=== PATIENT | male | born 1975 | race Caucasian/White ===

== ENCOUNTER 2019-07-07 10:48 | Inpatient (IN) ==
[2019-07-07] MEDS ORDERED: CeFAZolin Syr 2,000MG/20 ML 2,000 MG/20 ML SYRINGE IVPB ONE (10:59)
--- NOTE | 2019-07-07 11:14 | Anesthesia Evaluation PreOp ---
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 HX Other Medical History: GERD, Other (seasonal allergies) Anesthesia History: No Prior Anesthetic Complications, Past Anesthesia (Testicular torsion 10 y/o) Alcohol Use: none Drug use: none Medications and Allergies Multivitamin [Daily Multiple Vitamin] 1 each PO DAILY 03/15/19 [History] Esomeprazole Magnesium [Nexium 24Hr] 20 mg PO DAILY PRN 07/07/19 [History] Allergy/AdvReac Type Severity Reaction Status Date / Time No Known Allergies Allergy Verified 07/07/19 11:13 - Meds/Allergy Pre-op Review Medications Reviewed: Yes Allergies Reviewed: Yes Beta Blockers on Current Med List: No Anesthesia Results - Labs Laboratory Tests 07/02/19 07/02/19 08:16 08:16 WBC 6.3 Hgb 12.8 L Hct 44.0 Plt Count 328 Sodium 139 Potassium 4.2 Chloride 106 Carbon Dioxide 25 BUN 16 Creatinine 0.99 Anesthesia Exam O2 Sat Height 1.73 m Height 1.73 m Weight 89.811 kg Weight 89.811 kg O2 Sat by Pulse Oximetry 98 Vital Signs Temp Pulse Resp BP Pulse Ox 98.4 F 86 18 134/89 98 07/07/19 11:06 07/07/19 11:06 07/07/19 11:06 07/07/19 11:06 07/07/19 11:06 NPO (# of Hours): > 8 hrs Pain Scale: 0 Pain Scale Used: Numeric (1 - 10) - HEENT Pupil (Motor): Pupils equal, EOMI Mallampati: II Teeth: Normal Oral Opening: Greater than 3 - ELECTRICIAN CONSTRUCTOR SUPERVISOR LOC: Oriented ELECTRICIAN CONSTRUCTOR SUPERVISOR Motor: Normal RUE, Normal LUE, Normal RLE, Normal LLE, Normal Face ELECTRICIAN CONSTRUCTOR SUPERVISOR Sensory: Normal: RUE, LUE, RLE, LLE, Face - Cardiac Rhythm: Regular Murmur: None JVD: No Carotid Bruit: No - Pulmonary Breath Sounds: bilateral Clear Respiratory Effort: Symmetrical Anesthesia Assess/Plan ASA Score: 2 Level of consciousness: Cooperative Anesthetic Plan: General Autologous Blood: Yes Monitoring Plan: Standard Monitors, A-Line Recovery Plan: PACU
[2019-07-07] MEDS ORDERED: *HR* OxyCODONE Immed Rel 5 MG TABLET PO PRN (11:26)
[2019-07-07] MEDS ORDERED: *HR* Promethazine 25 MG/ML VIAL IVP PRN (11:26)
[2019-07-07] MEDS ORDERED: Ondansetron 4 MG/2 ML VIAL IVP ONE (11:26)
[2019-07-07] MEDS: Ringers Solution, Lactated 1,000 ML IVC SCH ×2 (11:27→18:04)
--- NOTE | 2019-07-07 11:49 | History & Physical Report ---
Date of Encounter: 07/07/19 Time of Encounter: 11:48 24 Hour HP Update - Instructions Instructions: If the History and Physical is less than 30 days old and was completed prior to A.M. admission and or procedure and has NOT been updated on calendar day of procedure please complete this update prior to performing procedure. - Update Patient reports changes in Medical Condition: No Changes in examination, assessment, or condition: No Changes in Medication: No Preop tests/diagnostics Reviewed: Yes Surgery Remains Indicated: Yes Consent for Planned Operative Procedure(s) Verified: Yes - Pre-Operative Checklist Preoperative Checklist Indicated: Yes Is VTE Prophylaxis Indicated?: Yes
[2019-07-07] MEDS ORDERED: *HR* FentaNYL (PF) 100 MCG/2 ML VIAL ONE ×3 (12:27→15:48)
[2019-07-07] MEDS ORDERED: *HR* Midazolam HCl 2 MG/2 ML VIAL ONE (12:28)
[2019-07-07] MEDS ORDERED: *HR* Propofol 200 MG/20 ML VIAL IVP ONE (12:28)
[2019-07-07] MEDS ORDERED: Dexamethasone 4 MG/ML VIAL ONE (12:30)
[2019-07-07] MEDS ORDERED: Lidocaine -MPF 2% 2 ML VIAL ONE ×2 (12:30→12:54)
[2019-07-07] MEDS ORDERED: Heparin 1,000 UNITS/500 mL 500 ML ONE (12:37)
[2019-07-07] MEDS ORDERED: *HR* PHENYLEPHRINE 1,000 MCG/10 ML SYRINGE IVP ONE (14:14)
[2019-07-07] MEDS ORDERED: *HR* Rocuronium Bromide 50 MG/5 ML VIAL ONE ×2 (14:32→16:30)
[2019-07-07] MEDS ORDERED: *HR* HYDROMORPHONE 2 MG/ML VIAL ONE (16:42)
--- NOTE | 2019-07-07 17:29 | Operative Note ---
Date of procedure: 07/07/19 Pre-op diagnosis: Right renal mass Post-op diagnosis: same Procedure: Right hand-assisted laparoscopic radical nephrectomy Implants: 16-Setswana Fine catheter Complications: None Anesthesia: GETA Surgeon: Chip Adrian Was there an hardware sales assistant present: Yes Principal Security Architect: Lorraine Duran Estimated blood loss (cc): 500 Specimen: right kidney Condition: stable Disposition: PACU Procedure in Detail: Indications: Mr. Escoto is a 43-year-old gentleman has a history of a right 13.7 x 11.6 x 13.9 cm renal mass. Given its size and location he elected to undergo a hand- assisted laparoscopic right nephrectomy. He was informed of the risks of the surgery which include but are not limited to bleeding, infection, injury to structures, need for further procedures, recurrence, DVT, PE, ileus, bowel injury, splenic injury, and the risk of anesthesia. He is willing to proceed. Procedure: After informed consent was obtained the patient was brought back to the operating room and placed in the supine position. A timeout was performed. Gen. anesthesia was administered and an endotracheal tube was placed. A Fine catheter was placed, and clear urine returned. He was then placed in the flank position with the right side up. He was well secured to the operating room table. All pressure points were well-padded. A 7 cm right lower quadrant incision was then made. The subcutaneous tissue was then dissected down using cautery. The anterior fascia was scored with the cautery. Using a forceps the fascia was then opened. The peritoneum was then identified below. This was grasped with forceps and opened sharply with Metzenbaum scissors. Entry into the peritoneum was safe. The peritoneum was fully opened the length of the incision. The hand port was then placed. Insufflation was achieved. A separate 1 cm incision was then made superior to the umbilicus. Another 1 cm incision was made just under the xiphoid process. 12 mm trochars were then placed. These were placed under direct visual guidance. A 5 mm incision was placed just above the upper 10 mm port. A 5 mm port was placed here to aid as a liver retractor needed. The white line of Toldt was then taken down using the Harmonic. The bowel was reflected off the liver. The Gerota's fascia was identified and the bowel was further dissected medially. The duodenum was identified. This was densely adherent to the kidney. Using Kitner dissectors and the Harmonic scalpel was able to safely kocherize the duodenum. The inferior vena cava was then identified. Dissection proceeded in the inferior aspect of the kidney to the renal vein. There were dense adhesions around the renal vein and it was identified. Posterior to this the renal artery was difficult to dissect out. There were some parasitic vessels that were bleeding at this point and I felt it best to improve my mobility on the kidney. Dissection proceeded along the inferior aspect of the vena cava. The gonadal vein was identified and reflected away from the kidney. The lower pole of the kidney was pressed upwards and identified the ureter. The ureter was cut using the Harmonic scalpel. The lateral aspects of the kidney was then released with dissection. Finally, attention was turned to the superior aspect of the kidney and this was freed up as well. Some of the parasitic veins did bleed at this point but with packing this was adequately controlled. I then returned back to the hilum. I was better able to identify the renal artery. A window behind the vein was created. With my fingers I was able to palpate the artery and I was able to completely get around the hilum. The 45 mm stapler was then introduced. The renal artery was stapled. I then proceeded to staple the renal vein. Hemostasis was adequate. All remaining attachments were released with a Harmonic scalpel. The kidney was then placed in a 15 mm Endo Catch bag. The kidney was removed through the GelPort incision. I then surveyed the nephrectomy bed. Hemostasis was excellent. I did not identify any bleeding. Using the Endoclose the 2 port sites were closed using 0 Vicryl suture. The hand port was then closed. I ran the peritoneum closed using an 0 Vicryl suture. The internal oblique fascia was closed in an running fashion using 0 Vicryl suture. The wounds were irrigated. The anterior dominant wall fascia was closed in a running fashion using an 0 Vicryl suture. Local anesthetic was infiltrated in the wounds. The skin was all closed in a subarticular fashion using a 4-0 Monocryl. Dermabond was applied to the wounds. The patient was then awakened from general anesthesia and brought to the recovery room in good condition. All sponge, needle, and his counts were correct.
[2019-07-07] MEDS: *HR* HYDROmorphone (PF) 1 MG/ML SYRINGE IVP PRN ×3 (18:09→18:37)
[2019-07-07] MEDS ORDERED: Naloxone 0.4 MG/ML INJ IVP PRN (19:33)
[2019-07-07] MEDS ORDERED: Acetaminophen 325 MG TABLET PO PRN (19:33)
[2019-07-07] MEDS: *HR* Heparin 5,000 UNIT/ML VIAL SQ SCH (22:12)
[2019-07-07] MEDS: 0.9 % Sodium Chloride 1,000 ML IVC SCH (22:12)
[2019-07-07] MEDS: *HR* HYDROcodone/Acet 5/325 mg TABLET PO PRN (22:23)
[2019-07-08] MEDS: Ondansetron 4 MG/2 ML VIAL IVP PRN ×2 (00:04→06:05)
[2019-07-08 05:47] LABS: Immature Granulocytes % 0.3 % (0-4); Lymphocytes # 0.7 K/mcL (0.6-4.6); Lymphocytes % 7.8 %; Mean Corpuscular HGB Conc 29.5 g/dL (31.6-35.5); Mean Corpuscular Hemoglobin 22.5 pg (28.0-33.3); Mean Corpuscular Volume 76.3 fL (83.0-100.0); Monocytes # 0.7 K/mcL (0.0-1.3); Monocytes % 7.5 %; Neutrophils # 7.9 K/mcL (1.6-8.9); Platelet Count 287 K/mcL (140-400); Red Blood Count 4.85 M/mcL (4.19-5.50); Segmented Neutrophils % 84.4 %; White Blood Count 9.3 K/mcL (4.3-11.1)
[2019-07-08 05:51] LABS: Hemoglobin 10.9 g/dL (12.9-16.9)
[2019-07-08] MEDS: *HR* Heparin 5,000 UNIT/ML VIAL SQ SCH ×2 (06:05→18:18)
[2019-07-08] MEDS: 0.9 % Sodium Chloride 1,000 ML IVC SCH ×3 (06:05→22:21)
[2019-07-08 06:14] LABS: BUN/Creatinine Ratio 10 (6-26); Blood Urea Nitrogen 15 mg/dL (6-20); Calcium 8.7 mg/dL (8.6-10.3); Carbon Dioxide 24 mEq/L (23-29); Chloride 103 mEq/L (98-107); Glucose 114 mg/dL (70-105); Osmolality,Calculated 286 (280-300); Potassium 4.5 mEq/L (3.5-5.1); Sodium 137 mEq/L (136-145); eGFR For African Americans > 60 (> 60); eGFR For Non-African Americans 52 (> 60)
[2019-07-08] MEDS: *HR* HYDROcodone/Acet 5/325 mg TABLET PO PRN ×4 (07:43→22:21)
--- NOTE | 2019-07-08 08:57 | Urology Progress Note ---
Date of Encounter: 07/08/19 Time of Encounter: 08:30 - Assessment and Plan (1) Right renal mass Current Visit: Yes Status: Acute Assessment and plan: Patient is a 43-year-old male who presents one day status post right hand-nataliia johanna laparoscopic radical nephrectomy for a large right renal mass. Patient appears to be recovering well postoperatively. Vital signs are currently stable and afebrile. I communicated order for discontinuation of Fine catheter with patient's nurse. I have also encouraged ambulation. We will plan to continue with clear liquids today, but if patient experiences increase in appetite, he may introduce solids this evening. Progress Note Subjective: no new complaints Narrative: POD #1. Patient seen and examined lying in bed in no apparent distress. Patient is tolerating clear liquids without nausea or vomiting. Patient reports pain is well-controlled at present. Fine catheter is indwelling and draining sufficiently. Patient denies any fever, chills, chest pain or dyspnea. Objective Initial Vital Signs Temp Pulse Resp BP Pulse Ox 98.4 F 86 18 134/89 98 07/07/19 11:06 07/07/19 11:06 07/07/19 11:06 07/07/19 11:06 07/07/19 11:06 - General physical appearance Present: no distress, no pain - Respiratory Present: normal expansion, normal respiratory effort - Abdomen Present: soft, non tender, wound (Primary incisions clean, dry, intact). Absent: distended - Genitourinary Present: normal penis with no external lesions Urine Appearance: Present: Clear - Integumentary Present: no rash, no abnormal pigmentation - Musculoskeletal Present: normal posture - Psychiatric Present: oriented to time, oriented to person, oriented to place, speech is normal, memory intact - Labs 07/08/19 04:36 07/08/19 04:36 Diabetes panel 07/08/19 Range/Units 04:36 Sodium 137 (136-145) mEq/L Potassium 4.5 (3.5-5.1) mEq/L Chloride 103 (98-107) mEq/L Carbon Dioxide 24 (23-29) mEq/L BUN 15 (6-20) mg/dL Creatinine 1.47 H (0.70-1.30) mg/dL Glucose 114 H (70-105) mg/dL Calcium 8.7 (8.6-10.3) mg/dL Calcium panel 07/08/19 Range/Units 04:36 Calcium 8.7 (8.6-10.3) mg/dL Pituitary panel 07/08/19 Range/Units 04:36 Sodium 137 (136-145) mEq/L Potassium 4.5 (3.5-5.1) mEq/L Chloride 103 (98-107) mEq/L Carbon Dioxide 24 (23-29) mEq/L BUN 15 (6-20) mg/dL Creatinine 1.47 H (0.70-1.30) mg/dL Glucose 114 H (70-105) mg/dL Calcium 8.7 (8.6-10.3) mg/dL Adrenal panel 07/08/19 Range/Units 04:36 Sodium 137 (136-145) mEq/L Potassium 4.5 (3.5-5.1) mEq/L Chloride 103 (98-107) mEq/L Carbon Dioxide 24 (23-29) mEq/L BUN 15 (6-20) mg/dL Creatinine 1.47 H (0.70-1.30) mg/dL Glucose 114 H (70-105) mg/dL Calcium 8.7 (8.6-10.3) mg/dL Consult Discharge Plan - Plan Referrals: Paulo Silvestre DO [Primary Care Provider] -
--- NOTE | 2019-07-08 15:34 | Event Note ---
Date of Encounter: 07/08/19 Time of Encounter: 15:10 Patient seen and examined lying in bed in no apparent distress. Vital signs are stable and afebrile. Patient reports pain is well-controlled, and he is planning to ambulate in the hallway. Patient wishes to continue clear liquid diet until tomorrow morning.
[2019-07-09] MEDS: *HR* HYDROcodone/Acet 5/325 mg TABLET PO PRN ×4 (05:11→22:30)
[2019-07-09] MEDS: *HR* Heparin 5,000 UNIT/ML VIAL SQ SCH ×2 (05:12→17:57)
--- NOTE | 2019-07-09 12:11 | Urology Progress Note ---
Date of Encounter: 07/09/19 Time of Encounter: 12:09 - Assessment and Plan (1) Right renal mass Current Visit: Yes Status: Acute Assessment and plan: Doing well status post right nephrectomy on the 10/06/2019. Incisions clean dry and intact without sign of infection. Patient pain is well-controlled. He reports that his nausea is settling significantly. He was able to tolerate some Jell-O this morning. He reports the onset of flatus. Plan: Continue admission with IV hydration as patient is unable to tolerate adequate by mouth at this point in time. Continue to advance diet as tolerated. Progress Note Subjective: no new complaints, feels better Objective Initial Vital Signs Temp Pulse Resp BP Pulse Ox 98.4 F 86 18 134/89 98 07/07/19 11:06 07/07/19 11:06 07/07/19 11:06 07/07/19 11:06 07/07/19 11:06 - General physical appearance Present: no distress - Respiratory Present: normal respiratory effort - Integumentary Present: other (Incisions clean dry and intact. No evidence of infection) - Musculoskeletal Present: normal posture - Psychiatric Present: oriented to time, oriented to person, oriented to place - Labs 07/08/19 04:36 07/08/19 04:36 Consult Discharge Plan - Plan Referrals: Paulo Silvestre DO [Primary Care Provider] -
[2019-07-09] MEDS: 0.9 % Sodium Chloride 1,000 ML IVC SCH ×2 (14:26→22:30)
[2019-07-09] MEDS ORDERED: *HR* Heparin 5,000 UNIT/ML VIAL ONE (17:54)
[2019-07-10] MEDS: *HR* HYDROcodone/Acet 5/325 mg TABLET PO PRN ×3 (02:33→16:57)
[2019-07-10] MEDS: *HR* Heparin 5,000 UNIT/ML VIAL SQ SCH ×2 (06:17→16:57)
[2019-07-10] MEDS: 0.9 % Sodium Chloride 1,000 ML IVC SCH (06:17)
--- NOTE | 2019-07-10 10:04 | Urology Progress Note ---
Date of Encounter: 07/10/19 Time of Encounter: 10:02 - Assessment and Plan (1) Right renal mass Current Visit: Yes Status: Acute Assessment and plan: Postoperative day #3 status post right hand-assisted laparoscopic nephrectomy. 1. Continue ambulation. 2. Continue general diet. 3. Once pain control is adequate, he can be discharged home. 4. Okay to shower. Progress Note Narrative: Postoperative day #3 status post right hand-assisted laparoscopic nephrectomy. He is tolerating diet. He is voiding well. He did ambulate more yesterday. This caused some worsening of his pain. The narcotics are helping with that. Objective Initial Vital Signs Temp Pulse Resp BP Pulse Ox 98.4 F 86 18 134/89 98 07/07/19 11:06 07/07/19 11:06 07/07/19 11:06 07/07/19 11:06 07/07/19 11:06 - General physical appearance Present: well developed, well nourished, no distress - Respiratory Present: normal respiratory effort - Abdomen Present: soft (Appropriately tender, not distended, incisions are clean, dry, intact) - Integumentary Present: no rash - Musculoskeletal Present: normal posture - Labs 07/08/19 04:36 07/08/19 04:36 Consult Discharge Plan - Plan Referrals: Paulo Silvestre DO [Primary Care Provider] -
--- NOTE | 2019-07-10 10:10 | Discharge Summary ---
Orders not resulted at time of discharge: Pending orders 07/07/19 16:49 Surgical Pathology [PTH] Routine Date of Encounter: 07/11/19 Time of Encounter: 10:07 - Discharge Diagnosis (1) Right renal mass Priority: Primary Status: Acute - Hospital Course Hospital course: Mr. Escoto is a 43 year old male who presented with a right renal mass. On 07/07/2019 he underwent a right hand-assisted laparoscopic nephrectomy. He did well after surgery. His diet was slowly advanced. Once his pain was adequately controlled, he was discharged home in good condition. - Time Spent with Patient Total time spent providing and/or coordinating discharge services: Less than 30 minutes - Discharge Medications Prescriptions: New HYDROcodone/Acet 10/325 mg [[place] 10-325 mg] 1 tab PO Q6HR PRN 4 Days #15 tab PRN Reason: Pain OxyCODONE Immed Rel [Roxicodone 5 MG] 5 mg PO Q6HR PRN 4 Days #15 tablet PRN Reason: Breakthrough Pain Continued Esomeprazole Magnesium [Nexium 24Hr] 20 mg PO DAILY PRN PRN Reason: Heartburn Multivitamin [Daily Multiple Vitamin] 1 each PO DAILY Home Medications: Multivitamin [Daily Multiple Vitamin] 1 each PO DAILY 03/15/19 [History] Esomeprazole Magnesium [Nexium 24Hr] 20 mg PO DAILY PRN 07/07/19 [History] HYDROcodone/Acet 10/325 mg [[place] 10-325 mg] 1 tab PO Q6HR PRN 4 Days #15 tab 07/10/19 [Rx] OxyCODONE Immed Rel [Roxicodone 5 MG] 5 mg PO Q6HR PRN 4 Days #15 tablet 07/10/19 [Rx] Allergies/Adverse Reactions: Allergy/AdvReac Type Severity Reaction Status Date / Time No Known Allergies Allergy Verified 07/07/19 11:13 Date of admission: 07/07/19 19:28 Primary care physician: Paulo Silvestre DO Discharging clinician: Chip Adrian Anticipated date of discharge: 07/10/19 Exam Initial Vital Signs Temp Pulse Resp BP Pulse Ox 98.4 F 86 18 134/89 98 07/07/19 11:06 07/07/19 11:06 07/07/19 11:06 07/07/19 11:06 07/07/19 11:06 - General physical appearance Present: well developed, well nourished, no distress - Eyes Absent: icteric - ENT Present: normal nares - Neck Present: trachea midline - Respiratory Present: normal respiratory effort - Cardiovascular Cardiovascular exam IM: RRR - Abdomen Abdomen: Present: soft (Normal tenderness. Incisions are clean, dry, and intac t.) - Neurologic Present: normal coordination - Musculoskeletal Present: normal gait - Patient Status Disposition: Home, Self-Care Condition: Good Functional capacity at discharge: independent ambulation Overall status at discharge: patient is progressing back to baseline - Discharge Instructions Follow Up With: Chip Adrian MD [Partnered Physician] - (2 weeks for pathology discussi on) Additional Instructions: 1. No heavy lifting greater than 20 pounds x4 weeks. 2. No tub baths x2 weeks. 3. May shower. 4. He should follow up in 2 weeks for postoperative check. 5. He should return for any fevers, chills, nausea, vomiting, or significant swelling/ecchymosis. 6. Please provide a work excuse for at least 2 weeks. - Diet and Activity Activity: increase activity as tolerated Diet: advance to your usual diet
[2019-07-11] MEDS: *HR* Heparin 5,000 UNIT/ML VIAL SQ SCH (05:29)
[2019-07-11 06:31] VITALS: BP 133/85
[2019-07-11] MEDS: *HR* HYDROcodone/Acet 5/325 mg TABLET PO PRN (08:42)
== END 2019-07-11 10:05 | disposition home or self-care (01) | DRG 658 ==
LOC: SAMDAY 10:48 → 3NENU 19:28
PROVIDERS: ADMIT Urology; ATTEND Urology